=== PATIENT | male | born 1955 | race African-American/Black ===

== ENCOUNTER 2021-01-03 13:50 | Inpatient (IN) | payer OTHER ==
[~2021-01-03] VITALS: Ht 190.5 cm; Wt 99.8 kg
[2021-01-03 14:17] LABS: HEMATOCRIT 43.1 % (42.0-52.0); HEMOGLOBIN 14.6 gm/dL (14.0-18.0); MCH 30.9 pg (26.0-34.0); MCHC 33.8 g/dL (28.0-37.0); MCV 91.4 fL (80.0-100.0); PLATELET COUNT 261 thou/uL (150-400); RBC 4.71 mil/uL (4.50-6.00); RDW 13.1 % (10.5-14.5); WBC 6.8 thou/uL (4.0-11.0)
[2021-01-03 14:25] LABS: ANION GAP 12 mmol/L (7-16); BUN 15 mg/dL (7-18); CALCIUM 8.2 mg/dL (8.5-10.1); CHLORIDE 101 mmol/L (98-107); CO2 26 mmol/L (21-32); CREATININE 1.5 mg/dL (0.7-1.3); GLUCOSE 180 mg/dL (74-106); SODIUM 139 mmol/L (136-145)
[2021-01-03 14:35] LABS: ALBUMIN 3.7 g/dL (3.4-5.0); SGOT 24 U/L (15-37); SGPT 29 U/L (30-65); TOTAL BILIRUBIN 0.6 mg/dL (0.2-1.0); TOTAL PROTEIN 7.5 g/dL (6.4-8.2); TROPONIN-I <0.06 ng/mL (<0.06)
[2021-01-03 14:51] LABS: ABSOLUTE NEUTROPHILS 2.2 thou/uL (1.4-8.2); SCHISTOCYTES OCCASIONAL; TARGET CELLS OCCASIONAL; TEARDROPS 1+
--- NOTE | 2021-01-03 15:56 | EKG ---
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[place] : 1955 Requested By: Agustín Wise Order Number: [id number] MD: Claudio Lopez Measurements Intervals [place] Rate: 77 P: 65 WA: 227 QRS: 59 QRSD: 95 T: 2 QT: 405 QTc: 459 Interpretive Statements Sinus rhythm Prolonged WA interval LAE, consider biatrial enlargement No previous ECG available for comparison Electronically Signed On 01-03-2021 15:56:06 CDT by Claudio Lopez [email or web address] <ELECTRONICALLY SIGNED> By: Claudio Lopez MD, [facility] 01/03/21 1556 1354 [id number] Claudio Lopez MD, FACC /EPI
[2021-01-03 16:46] VITALS: BP 123/69
[2021-01-03 16:57] VITALS: BP 157/90
[2021-01-03 17:30] VITALS: BP 153/82
--- NOTE | 2021-01-03 20:05 | NUR ---
ASSUMED PT CARE AROUND 1729. PT ALERT X ORIENTED X4. ON ROOM AIR. VSS. STAND BY ASST. IV RT AC. COVID NEGATIVE. TELE PT.ON FULL CODE. PT SISTER IN THE ROOM WHEN PT ARRIVED ON THE FLOOR. PT EATING AND DRINKING. FALL PRECAUTION IN PLACE. CALL LIGHT IN REACH. WILL CALL APPROPRIATELY. AZITHROMYCIN SCHEDULED AT 1500IN EMAR, RN WILSON D ER TO CHECK WITH NURSE (FADY) WHO TOOK CARE OF THE PT IN ER, IT WAS SAID SHE IS TAKING CARE OF ANOTHER PATIENT AND WILL CALL ASK HER TO CALL BACK TO 4W. AROUND 1829, RN CALLED ER AGAIN TO CHECK ABT THE MEDS AND ANOTHER NURSE SAID SHE WILL ENQUIRE WITH SOPHIE SHRESTHA AND LET 4W KNOW, BUT NOBODY CALLED BACK. RN CHECKED WITH THE PHARMACY, PHARMACY SAID THEY HAVE NO IDEA ABOUT THAT MEDICINE IT IS USUALLY BEING GIVEN FROM ER ITSELF. RN WAS NOT ABLE TO GET THAT MEDICINE. 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 SHIFT REPORT GIVEN TO THAO.
[2021-01-03 20:15] VITALS: BP 139/82
[2021-01-04 02:50] VITALS: BP 143/87
[2021-01-04 04:49] LABS: BASOPHILS 0.2 % (0.0-2.0); EOSINOPHILS 0.4 % (0.0-3.0); HEMATOCRIT 40.5 % (42.0-52.0); HEMOGLOBIN 13.9 gm/dL (14.0-18.0); LYMPHOCYTES 26.7 % (24.0-44.0); MCH 31.2 pg (26.0-34.0); MCHC 34.4 g/dL (28.0-37.0); MCV 90.7 fL (80.0-100.0); MONOCYTES 7.6 % (1.0-8.0); PLATELET COUNT 234 thou/uL (150-400); POLYS 65.1 % (36.0-66.0); RBC 4.47 mil/uL (4.50-6.00); RDW 13.3 % (10.5-14.5); WBC 7.6 thou/uL (4.0-11.0)
[2021-01-04 04:52] LABS: ANION GAP 14 mmol/L (7-16); BUN 15 mg/dL (7-18); CALCIUM 8.3 mg/dL (8.5-10.1); CHLORIDE 104 mmol/L (98-107); CHOLESTEROL 147 mg/dL (<200); CO2 24 mmol/L (21-32); CREATININE 1.3 mg/dL (0.7-1.3); GLUCOSE 114 mg/dL (74-106); HDL CHOLESTEROL 41 mg/dL (>40); LDL CHOLESTEROL 88 mg/dL (<100); MAGNESIUM 1.9 mg/dL (1.8-2.4); POTASSIUM 3.3 mmol/L (3.5-5.1); SODIUM 142 mmol/L (136-145); TC:HDL 3.6 Ratio (Not establshd); TRIGLYCERIDE 93 mg/dL (<150); VLDL 19 mg/dL (<40)
[2021-01-04 04:57] LABS: SERUM ASSESSMENT Clear
--- NOTE | 2021-01-04 07:25 | NUR ---
ASSUMED PT CARE AT 1900.PT DENIED PAIN ALL NIGHT.UP WITH SBA.URINAL AT BEDSIDE.PT SR ON TELE.PT ABLE TO MAKE HIS NEEDS KNOWN.REPORT TO AM NURSE.
[2021-01-04 07:30] VITALS: BP 157/99
[2021-01-04] MEDS ORDERED: MECLIZINE HCL25 MG PO (10:00)
[2021-01-04 12:00] VITALS: BP 157/99
--- NOTE | 2021-01-04 13:30 | NUR ---
Assumed pt care this am, VS stable. No dizziness noted. Able to ambulate the room with no issues. DC instructions and prescriptions given to the pt. Diet and medicationsd are well tolerated. POC followed with no signs or verbalizations of distress. IV removed, awaiting for pick up driver
--- NOTE | 2021-01-04 17:42 | 2DMMODE ---
[facility] [place] [address] 2 D/M-MODE ECHOCARDIOGRAM Name: LYNETTE CHAO Room #: 453-P DIS IN M.R.#: [id number] Admission: 01/03/21 Attend Phys: Hayes Garza MD Discharge: 01/04/21 Date of : 51 Report #: [id number] THIS REPORT FOR: cc: ANABEL - No family physician/PCP ANABEL - No family physician/PCP Srinivas Pulliam MD ~ APPROVED REPORT Study performed: 01/04/2021 08:33:50 EXAM: Comprehensive 2D, Doppler, and color-flow Echocardiogram Patient Location: Bedside Room #: 453 Status: on-call BSA: 2.29 HR: 75 bpm BP: 143/87 mmHg Rhythm: NSR Other Information Study Quality: Adequate Risk Factors: Cardiac Risk Factors: HTN Indications Syncope Hypertension/HDD 2D Dimensions IVSd: 15.98 (7-11mm) LVOT Diam: 22.00 (18-24mm) LVDd: 35.38 mm PWd: 14.08 (7-11mm) Ascending Ao: 35.48 (22-36mm) LVDs: 25.10 (25-40mm) Aortic Root: 31.13 mm LV Single Plane 4CH: 57.04 % LV Single Plane 2CH: 64.08 % Biplane EF: 61.5 % Volumes Left Atrial Volume (Systole) Single Plane 4CH: 67.53 mL Single Plane 2CH: 58.80 mL LA ESV Index: 33.00 mL/m2 [facility] [place] [address] 2 D/M-MODE ECHOCARDIOGRAM Name: GUANAKOBRIDGERLYNETTE Room #: 453-P [facility] IN M.R.#: [id number] Admission: 01/03/21 Attend Phys: Hayes Garza MD Discharge: 01/04/21 Date of : 51 Report #: [id number] Aortic Valve AoV Peak Elijah.: 1.21 m/s AO Peak Gr.: 5.82 mmHg LVOT Max P.80 mmHg LVOT Max V: 0.84 m/s SUSANA Vmax: 2.65 cm2 Mitral Valve E/A Ratio: 0.8 MV Decel. Time: 237.63 ms MV E Max Elijah.: 0.65 m/s MV A Elijah.: 0.83 m/s MV PHT: 68.91 ms IVRT: 62.28 ms TDI E/Lateral E': 13.00 E/Medial E': 13.00 Medial E' Elijah.: 0.05 m/s Lateral E' Elijah.: 0.05 m/s Pulmonary Valve PV Peak Elijah.: 1.00 m/s PV Peak Gr.: 3.99 mmHg Pulmonary Vein P Vein S: 0.47 m/s P Vein A: 0.30 m/s P Vein D: 0.29 m/s P Vein A Dur.: 107.3 msec P Vein S/D Ratio: 1.62 Tricuspid Valve TR Peak Elijah.: 1.78 m/s RAP Estimate: 7.00 mmHg TR Peak Gr.: 12.61 mmHg PA Pressure: 27.00 mmHg Left Ventricle The left ventricle is normal size. There is normal LV segmental wall motion. Moderate concentric left ventricular hypertrophy. Left ventricular systolic function is normal. The left ventricular ejection fraction is within the normal range. LVEF is 60-65%. Mild diastolic dysfunction is present (impaired relaxation pattern). Right Ventricle The right ventricle is normal size. The right ventricular systolic function is normal. Atria The left atrium size is normal. The right atrium size is [facility] [address] [place] [address] 2 D/M-MODE ECHOCARDIOGRAM Name: LYNETTE CHAO Room #: 453-P [facility] IN .R.#: [id number] Admission: 01/03/21 Attend Phys: Hayes Garza MD Discharge: 01/04/21 Date of : 51 Report #: [id number] normal. Aortic Valve The aortic valve is normal in structure. No aortic regurgitation is present. There is no aortic valvular stenosis. Mitral Valve The mitral valve is normal in structure. Trace mitral regurgitation. No evidence of mitral valve stenosis. Tricuspid Valve The tricuspid valve is normal in structure. Trace tricuspid regurgitation. Pulmonary artery pressure is 27 mmHg. Pulmonic Valve The pulmonary valve is normal in structure. Trace pulmonic regurgitation. Great Vessels The aortic root is normal in size. The ascending aorta is normal in size. IVC is normal in size and collapses >50% with inspiration. Pericardium There is no pericardial effusion. <Conclusion> The left ventricle is normal size. Moderate concentric left ventricular hypertrophy. There is normal LV segmental wall motion. LVEF is 60-65%. The right ventricle is normal size. The aortic valve is normal in structure. The mitral valve is normal in structure. Trace mitral regurgitation. The tricuspid valve is normal in structure. Trace tricuspid regurgitation. Pulmonary artery pressure is 27 mmHg. The pulmonary valve is normal in structure. Trace pulmonic regurgitation. The aortic root is normal in size. There is no pericardial effusion. <ELECTRONICALLY SIGNED> By: Srinivas Pulliam MD 01/04/211741 41 41 Srinivas Pulliam MD /INF
== END 2021-01-04 14:17 | disposition home or self-care (01) | DRG 871 ==
LOC: ER 13:50 → EROBS 16:46 → 4W 16:46
PROVIDERS: Emergency Medicine; Nurse Practitioner; ADMIT Hospitalist; ATTEND Hospitalist
DX: A41.9 Sepsis, unspecified organism (principal); U07.1 COVID-19; J12.82 Pneumonia due to coronavirus disease 2019; N17.9 Acute kidney failure, unspecified; I10 Essential (primary) hypertension; E87.6 Hypokalemia; E86.0 Dehydration; Z86.711 Personal history of pulmonary embolism
CPT/HCPCS: 10045

== ENCOUNTER 2021-03-28 11:27 | Emergency (ER) | payer OTHER ==
[~2021-03-28] VITALS: Ht 190.5 cm; Wt 98.4 kg
--- NOTE | ~2021-03-28 | EMS ---
[facility] [address] [place] [address] EMS Patient Care Report Name: LYNETTE CHAO Room #: DEP SHAYLA Montoya#: [id number] Admission: 03/28/21 Attend Phys: Discharge: 03/28/21 Date of : 51 Report #: [id number] THIS REPORT FOR: //name// Report Transmitted: 03/31/2021 13:21 EMS Care Summary [place], [place]/[facility] Incident [id number] @ 03/28/2021 10:48 Incident Location [address] / [place] [address] Patient LYNETTE CHAO Male, 65 Years 1955 Patient Address Patient History Hypertension (HTN), Patient Allergies No known allergies, Patient Medications None Reported, Chief Complaint SYNCOPAL EPISODE Disposition Transported No Lights/Mt Baldy Dispatch Reason Unconscious/Fainting Transported To [facility] Narrative M41 WAS DISPATCHED TO A QUICK TRIP ON AN UNCONSCIOUS. ON ARRIVAL PT IS FOUND LAYING [place]PINE ON THE PARKING LOT WITH PUMPER CREW ON SCENE. PT IS ALERT AND ORIENTED GCS OF 15 AND TELLS EMS THAT HE HAS SYNCOPAL EPISODES SOMETIMES AND DOES NOT WANT TO GO TO THE HOSPITAL AND JUST WANTS TO BE CHECKED OUT. PT IS ABLE TO STAND AND WALK TO THE AMBULANCE WITH ASSISTANCE. ONCE IN THE BACK OF THE AMBULANCE PT HAS DIFFICULTY STAYING AWAKE WITH EMS AND WHEN EMS RECOMMENDS [facility] [address] [place] [address] EMS Patient Care Report Name: LYNETTE CHAO Room #: DEP Lindsay#: [id number] Admission: 03/28/21 Attend Phys: Discharge: 03/28/21 Date of : 51 Report #: [id number] TRANSPORT PT AGREES TO GO TO [facility] FOR EVALUATION. VITALS MONITORED EN ROUTE WITH THE ONLY CHANGE IN PT CONDITION BEING INCREASED BLOOD PRESSURE AFTER ADMINISTRATION OF FLUIDS. Initial Vitals @11:07P: 56,BP: 67/44,SpO2: 97, @11:13P: 54,BP: 95/59,CO: 7,SpO2: 100, @11:05P: 51,R: 16,BP: 90/51,Pain: 0/10,GCS: 15,Glucose: 142,SpO2: 99,Revised Trauma: 12, @11:18P: 51,R: 16,BP: 114/57,Pain: 0/10,GCS: 15,SpO2: 98,Revised Trauma: 12, Assessments @11:04MENTAL:Person Oriented,Time Oriented,Place Oriented,Event Oriented,SKIN:Diaphoresis,HEENT:Head/Face: No Abnormalities,Neck/Airway: No Abnormalities,LUNG SOUNDS:General: No Abnormalities,ABDOMEN:General: No Abnormalities,PELVIS//GI:No Abnormalities,EXTREMITIES:Left Arm: No Abnormalities,Right Arm: No Abnormalities,Left Leg: No Abnormalities,Right Leg: No Abnormalities,PULSE:NEURO:No Abnormalities, Impression Syncope / Fainting Procedures @11:04ALS AssessmentResponse: UnchangedSucceeded@11:10Normal Saline (.9% NaCl) 500cc (18 ga) Site: Forearm-LeftResponse: ImprovedSucceeded Timeline 10:46,Call Received 10:46,Dispatch Notified 10:48,Dispatched 10:53,En Route 11:03,On Scene 11:04,At Patient 11:04,ALS Assessment,Response: UnchangedSucceeded, 11:05,BP: 90/51 M,PULSE: 51,RR: 16 R,SPO2: 99 Ox,ETCO2: ,B,PAIN: 0,GCS: 15, 11:07,BP: 67/44 M,PULSE: 56,RR: R,SPO2: 97 Ox,ETCO2: ,BG: ,PAIN: ,GCS: , 11:10,Normal Saline (.9% NaCl) 500cc 18 ga Site: Forearm-Left,Response: ImprovedSucceeded, 11:13,BP: 95/59 M,PULSE: 54,RR: R,SPO2: 100 Ox,ETCO2: ,BG: ,PAIN: ,GCS: , 11:14,Depart Scene 11:18,BP: 114/57 M,PULSE: 51,RR: 16 R,SPO2: 98 Ox,ETCO2: ,BG: ,PAIN: 0,GCS: 15, 11:24,At Destination 11:34,Call Closed Disclaimer [address] [address] EMS Patient Care Report Name: GUANAKOLYNETTE SPARKS Room #: DWIGHT Montoya#: [id number] Admission: 03/28/21 Attend Phys: Discharge: 03/28/21 Date of : 51 Report #: [id number] v1.1 Copyright 2020 [employer] This EMS Care Summary contains data elements from the applicable legal record (which may be displayed differently). It is designed to provide pertinent information for the following purposes: continuity of care, clinical quality, and state data reporting. The complete legal record is available to ED staff and administrators of the receiving hospital in [employer] Patient Tracker. All data is provided "as is."
[~2021-03-28 11:27] MED LIST: MECLIZINE HCL25 MG PO
[2021-03-28 11:50] LABS: ABSOLUTE NEUTROPHILS 1.9 thou/uL (1.4-8.2); BASOPHILS 0.4 % (0.0-2.0); EOSINOPHILS 1.1 % (0.0-3.0); HEMATOCRIT 39.1 % (42.0-52.0); HEMOGLOBIN 13.6 gm/dL (14.0-18.0); LYMPHOCYTES 58.1 % (24.0-44.0); MCH 31.6 pg (26.0-34.0); MCHC 34.8 g/dL (28.0-37.0); MCV 90.6 fL (80.0-100.0); MONOCYTES 9.7 % (1.0-8.0); PLATELET COUNT 237 thou/uL (150-400); POLYS 30.7 % (36.0-66.0); RBC 4.31 mil/uL (4.50-6.00); RDW 13.3 % (10.5-14.5); WBC 6.1 thou/uL (4.0-11.0)
[2021-03-28 11:57] LABS: ANION GAP 7 mmol/L (7-16); BUN 14 mg/dL (7-18); CALCIUM 8.3 mg/dL (8.5-10.1); CHLORIDE 105 mmol/L (98-107); CO2 28 mmol/L (21-32); CREATININE 1.6 mg/dL (0.7-1.3); GLUCOSE 162 mg/dL (74-106); SODIUM 140 mmol/L (136-145)
[2021-03-28 12:06] LABS: ALBUMIN 3.3 g/dL (3.4-5.0); SGOT 22 U/L (15-37); SGPT 25 U/L (16-63); TOTAL BILIRUBIN 0.4 mg/dL (0.2-1.0); TOTAL PROTEIN 6.4 g/dL (6.4-8.2); TROPONIN-I <0.06 ng/mL (<0.06)
[2021-03-28 14:05] LABS: URINE BILIRUBIN NEGATIVE (Negative); URINE BLOOD NEGATIVE (Negative); URINE CLARITY CLEAR; URINE COLOR YELLOW; URINE GLUCOSE-RANDOM* NEGATIVE (Negative); URINE KETONES NEGATIVE (Negative); URINE LEUKOCYTES-REFLEX NEGATIVE (Negative); URINE NITRITE-REFLEX NEGATIVE (Negative); URINE PROTEIN (DIPSTICK) NEGATIVE (Negative); URINE UROBILINOGEN 0.2 E.U./dl (0.2-1.0)
[2021-03-28] MEDS ORDERED: AZITHROMYCIN 2250 MG PO (14:29)
[2021-03-28 14:54] VITALS: BP 146/72
--- NOTE | 2021-03-29 10:37 | EKG ---
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 : 1955 Requested By: Will Kirkland Order Number: [id number] MD: Teo King Measurements Intervals [place] Rate: 73 P: 72 MD: 231 QRS: 56 QRSD: 93 T: 11 QT: 397 QTc: 438 Interpretive Statements Sinus rhythm Prolonged MD interval Poor R wave progression Compared to ECG 01/03/2021 13:54:[address] and T wave abnormality no longer present Electronically Signed On 03-29-2021 10:37:15 CDT by Teo King [email or web address] <ELECTRONICALLY SIGNED> By: Teo King MD, [facility] 03/29/21 1037 1127 [id number] Teo King MD, FACC /EPI
[2021-03-29] MEDS ORDERED: AZITHROMYCIN 2250 MG PO (14:13)
== END 2021-03-28 14:54 | disposition home or self-care (01) ==
LOC: ER 11:27
PROVIDERS: Emergency Medicine
DX: R00.1 Bradycardia, unspecified (principal); E87.6 Hypokalemia; J18.9 Pneumonia, unspecified organism; I10 Essential (primary) hypertension; Z20.822 Contact with and (suspected) exposure to COVID-19; Z79.899 Other long term (current) drug therapy